=== PATIENT | female | born 1985 | race Two or more races ===

== ENCOUNTER → 2019-04-23 | Outpatient (CLI) | payer OTHER ==
[~2019-04-23] MED LIST: FOLIC ACID0.8 M1 PO; PRENATABS RX T1 EACH PO
== END | disposition home or self-care (01) ==
LOC: PRENATAL 14:00
DX: O09.523 Supervision of elderly multigravida, third trimester (principal); O36.8191 Decreased fetal movements, unspecified trimester, fetus 1

== ENCOUNTER 2019-04-24 08:33 | Inpatient (IN) | payer OTHER ==
[~2019-04-24] VITALS: Ht 165.1 cm; Wt 57.2 kg
[2019-04-24] MEDS ORDERED: PRENATABS RX T1 EACH PO (08:38)
[2019-04-24] MEDS ORDERED: FOLIC ACID0.8 M1 PO (08:38)
== END 2019-04-26 20:31 | disposition home or self-care (01) | DRG 798 ==
LOC: OB/GYN 08:33 → LDR 08:33 → OB/GYN 13:02
PROVIDERS: ADMIT Obstetrics & Gynecology Obstetrics
PROC: 10E0XZZ Delivery of Products of Conception, External Approach (ICD-10-PCS; principal; 2019-04-24)
PROC: 0W8NXZZ Division of Female Perineum, External Approach (ICD-10-PCS; 2019-04-24)
PROC: 4A1HXCZ Monitoring of Products of Conception, Cardiac Rate, External Approach (ICD-10-PCS; 2019-04-24)
PROC: 0UB70ZZ Excision of Bilateral Fallopian Tubes, Open Approach (ICD-10-PCS; 2019-04-25)
DX: O80 Encounter for full-term uncomplicated delivery (principal); Z37.0 Single live birth; Z3A.40 40 weeks gestation of pregnancy; Z30.2 Encounter for sterilization